=== PATIENT | female | born 1965 | race Two or more races ===

== ENCOUNTER 2018-03-18 09:47 | Inpatient (IN) | payer MEDICAID ==
[2018-03-10 10:33] LABS: APPEARANCE,URINE CLOUDY; BILIRUBIN, URINE NEGATIVE (NEGATIVE); COLOR,URINE PALE YELLOW; GLUCOSE, URINE (UA) NEGATIVE (NEGATIVE); KETONES,URINE NEGATIVE (NEGATIVE); LEUKOCYTE ESTERASE ,URINE 2+ (NEGATIVE); NITRITE,URINE NEGATIVE (NEGATIVE); PH,URINE 5 (4.5-8.0); PROTEIN,URINE NEGATIVE (NEGATIVE); UROBILINOGEN,URINE NORMAL MG/DL (0.0-1.0)
[2018-03-10 10:36] LABS: BASOPHILS % (AUTO) 1.2 % (0.0-2.0); EOSINOPHILS % (AUTO) 0.1 % (0.0-3.0); HEMATOCRIT 31.8 % (37.0-47.0); HEMOGLOBIN 10.5 G/DL (12.0-16.0); LYMPHOCYTES % (AUTO) 43.8 % (20.0-45.0); MEAN CORPUSCULAR VOLUME 98 FL (80-99); MONOCYTES % (AUTO) 8.8 % (1.0-10.0); NEUTROPHILS % (AUTO) 46.1 % (45.0-75.0); PLATELET COUNT 213 K/UL (150-450); RED BLOOD COUNT 3.25 M/UL (4.20-5.40); RED CELL DISTRIBUTION WIDTH 14.2 % (11.6-14.8); WHITE BLOOD COUNT 6.8 K/UL (4.8-10.8)
[2018-03-10 10:42] LABS: INR 0.9 (0.9-1.1)
[2018-03-10 11:09] LABS: ANION GAP 8 mmol/L (5-15); BLOOD UREA NITROGEN 23 mg/dL (7-18); CALCIUM 8.7 MG/DL (8.5-10.1); CARBON DIOXIDE 27 MMOL/L (21-32); CHLORIDE 107 MMOL/L (98-107); CREATININE 0.8 MG/DL (0.55-1.30); POTASSIUM 3.8 MMOL/L (3.5-5.1); SODIUM 142 MMOL/L (136-145)
--- NOTE | 2018-03-10 14:03 | Diagnostic Imaging Report ---
Indication: Cough Technique: 2 views of the chest Comparison: None Findings: There is left arm PICC, tip of which is at the level of the upper superior vena cava just beyond the innominate venous confluence. The lungs and pleural spaces are clear. Heart size is normal. The aorta is tortuous. There are degenerative changes of the thoracic spine. A surgical clip is seen within the right breast Impression: No acute process PICC
--- NOTE | 2018-03-12 17:05 | Cardiology Report ---
APPROVED REPORT EKG Measurement Heart [id number] Normal sinus rhythm T wave abnormality, consider anterior ischemia Abnormal ECG
--- NOTE | 2018-03-17 11:15 | Pre-op HX & Phy Repo 2 SIG ---
DATE OF ADMISSION: 03/18/2018 SCHEDULED FOR SURGERY: On March 18, 2018. HISTORY OF PRESENT ILLNESS: The patient is a 52-year-old female who presented earlier this year with a mass in the outer right breast. Core biopsy revealed invasive ductal carcinoma of the breast and core biopsy of two axillary lymph nodes were negative. The patient was HER2-positive and underwent neoadjuvant chemotherapy. She is now scheduled to undergo right breast partial mastectomy with preoperative needle localization and right axillary lymph node biopsy. PAST MEDICAL HISTORY: MEDICATIONS: In the past, the patient took medications for hypertension and has taken baby aspirin in the past. Current medications include atorvastatin, Herceptin, Zofran, metoprolol. ALLERGIES: None. OPERATIONS: Removal of a left breast mass 30 years ago. REVIEW OF SYSTEMS: The patient is from [facility] and speaks no [place], but her daughter is always present who translates. PHYSICAL EXAMINATION: VITAL SIGNS: Height 5 feet 2 inches, weight 188 pounds. HEENT: Within normal limits. LUNGS: Clear. HEART: Regular rhythm. BREASTS: The right breast mass in the outer breast at 9 o'clock, 5 cm from the nipple is no longer palpable. Followup ultrasound was obtained revealing the mass is markedly decreased in size, now measuring 1.3 x 1.3. There is no palpable axillary supraclavicular lymphadenopathy. ABDOMEN: Soft. PELVIC: Per primary care physician. RECTAL: Per primary care physician. EXTREMITIES: Without edema. NEUROLOGIC: Physiologic. IMPRESSION: Invasive ductal carcinoma of right breast, status post chemotherapy. PLAN: Right breast partial mastectomy with preoperative needle localization and right axillary lymph node biopsy. Full discussion has been had with the patient and daughter regarding the nature of the surgery, indications, alternatives, options, and risks including bleeding, infection, recurrence, need for additional surgery to clear margins pending final pathology, need for radiation therapy to the breast, potential need for additional chemotherapy postoperatively. All questions have been answered. They understand and agreed to proceed. Abe Del Real M.D. DR: Marcia JOB#: [id number] CC:
[~2018-03-18] VITALS: Ht 162.6 cm; Wt 85.7 kg
[2018-03-18] VITALS (10 sets, daily range): BP systolic 96–154; BP diastolic 68–99
[2018-03-18] MEDS ORDERED: POTASSIUM600 M1 PO (10:25)
[2018-03-18] MEDS ORDERED: MAGNESIUM500 MG PO (10:25)
--- NOTE | 2018-03-18 11:34 | Pre-Procedure Note/Attestation ---
Pre-Procedure Note/Attestation Complete Prior to Procedure Planned Procedure: right Procedure Narrative: right breast partial mastectomy with pre-operative needle localization and right axillary lymph node biopsy Indications for Procedure Pre-Operative Diagnosis: invasive ductal carcinoma right breast Attestation I attest that I discussed the nature of the procedure; its benefits; risks and complications; and alternatives (and the risks and benefits of such alternatives ), prior to the procedure, with the patient (or the patient's legal delivery representative). I attest that, if there was a reasonable possibility of needing a blood transfusion, the patient (or the patient's legal delivery representative) was given the [facility] standardized written summary, pursuant to the [place] Blood Safety Act ([place] Health and Safety Code # 1645, as amended). I attest that I re-evaluated the patient just prior to the surgery and that there has been no change in the patient's H&P, except as documented below:none Abe Del Real MD Mar 18, 2018 11:34
[2018-03-18] MEDS ORDERED: Zemuron 50mg/5ml Inj IV ONE (11:44)
[2018-03-18] MEDS ORDERED: Lidocaine 1% 10mg/ml/EPI 0.01mg/ml 50ml INJ ONE (11:49)
[2018-03-18] MEDS ORDERED: Bupivacaine 0.5% Inj 30 ml vial INJ ONE (11:50)
[2018-03-18] MEDS ORDERED: Sterile Water Irrig 1000ml IRRIG ONE (12:00)
[2018-03-18] MEDS ORDERED: LR 1000ml ONE (12:00)
[2018-03-18] MEDS ORDERED: NS Irrig 1000ml ONE (12:00)
--- NOTE | 2018-03-18 12:02 | Anethesia Preoperative Eval ---
Anesthesia Pre-op PMH/ROS General Date of Evaluation: Mar 18, 2018 Time of Evaluation: 11:45 Anesthesiologist: ASA Score: ASA 3 Mallampati Score Class I : Soft palate, uvula, fauces, pillars visible Class II: Soft palate, uvula, fauces visible Class III: Soft palate, base of uvula visible Class IV: Only hard plate visible Mallampati Classification: Class II Surgeon: julien Diagnosis: right breast cancer Surgical Procedure: right breast partial mastectomy w/ preop neecle loc anr right axillary lymp Anesthesia History: none Allergies: Coded Allergies: No Known Allergies (Unverified , 03/17/18) Medications: see eMAR Past Medical History Cardiovascular: Reports: HTN; Denies: CAD, [place], valve dz, arrhythmia, other Gastrointestinal/Genitourinary: Denies: GERD, CRI, ESRD, other Neurologic/Psychiatric: Denies: dementia, CVA, depression/anxiety, TIA, other HEENT: Denies: cataract (L), cataract (R), glaucoma, [place] (L), [place] (R), other Hematology/Immune: Denies: anemia, DVT, bleeding disorder, other Musculoskeletal/Integumentary: Denies: OA, RA, DJD, DDD, edema, other Other: obesity Anesthesia Pre-op Phys. Exam Physician Exam Last Vital Signs Date Time Temp Pulse Resp B/P (MAP) Pulse Ox O2 Delivery O2 Flow Rate FiO2 03/18/18 10:27 98.1 71 20 136/93 (107) 98 98.1 03/18/18 10:25 Room Air Constitutional: NAD Cardiovascular: RRR Respiratory: CTA Gastrointestinal: S/NT/ND Airway Exam Mallampati Score: Class II MO: full ROM: full Teeth: missing Dentures: no upper, no lower Anesthesia Pre-op A/P Risk Assessment & Plan Assessment: asa 3 Plan: ETGA Status Change Before Surgery: No Pre-Antibiotics Drug: ancef 2 grams Given Within 1 Hr of Incision: Yes Time Given: 12:25 Fransisca Drew M.D. Mar 18, 2018 12:02
[2018-03-18] MEDS ORDERED: Lidocaine 1% MPF 10mg/ml 5ml ONE (12:43)
[2018-03-18] MEDS ORDERED: Propofol 200mg/20ml IV ONE (12:43)
[2018-03-18] MEDS ORDERED: fentaNYL 100 mcg/2 mL IV ONE (12:44)
[2018-03-18] MEDS ORDERED: LR 1000ml 1,000 ML IVLG SCH (13:01)
[2018-03-18] MEDS ORDERED: Labetalol 5mg/ml 20ml vial IV PRN (13:15)
[2018-03-18] MEDS ORDERED: DiphenhydrAMINE 50mg/ml Inj IVP PRN (13:15)
[2018-03-18] MEDS ORDERED: fentaNYL 100 mcg/2 mL IV PRN (13:15)
[2018-03-18] MEDS ORDERED: Hydromorphone 0.5mg/0.5ml inj IVP PRN (13:15)
--- NOTE | 2018-03-18 13:23 | Immediate Post-Op Evaluation ---
Immediate Post-Op Evalulation Immediate Post-Op Evalulation Procedure: right partial mastectomyw/ preop needle loc and right lymph node biopsy Date of Evaluation: Mar 18, 2018 Time of Evaluation: 14:06 IV Fluids: 400ml Blood Products: 0 Estimated Blood Loss: 10ml Urinary Output: 0 Blood Pressure Systolic: 96 Blood Pressure Diastolic: 68 Pulse Rate: 70 Respiratory Rate: 17 O2 Sat by Pulse Oximetry: 100 Temperature (Fahrenheit): 97.2 Pain Score (1-10): 0 Nausea: No Vomiting: No Complications none Patient Status: awake, patent, none Hydration Status: adequate Drug: ancef 2 grams Given Within 1 Hr of Incision: Yes Time Given: 10:25 Fransisca Drew M.D. Mar 18, 2018 13:23
[2018-03-18] MEDS ORDERED: Dexamethasone 4mg/ml vial ONE (13:32)
[2018-03-18] MEDS ORDERED: Glycopyrrolate 0.2mg/ml 1ml Vial ONE (13:56)
[2018-03-18] MEDS ORDERED: Neostigmine 1mg/ml 10ml Inj ONE (13:56)
--- NOTE | 2018-03-18 14:12 | Brief Operative Note ---
Immediate Post Operative Note Operative Note Pre-op Diagnosis: invasive ductal carcinoma right breast Procedure: right breast partial mastectomy with pre-op needle localization and right axillary lymph node biopsy Post-op Diagnosis: same Post-op Diagnosis: same as pre-op Findings: consistent w/pre-op dx studies Surgeon: ujlien Anesthesiologist: Anesthesia: general Specimen: yes - right breast tumor, right axillary lymph nodes Complications: none Condition: stable Fluids: see anesthesia record Estimated Blood Loss: minimal Drains: EARNEST Implant(s) used?: No Abe Del Real MD Mar 18, 2018 14:11
[2018-03-18] MEDS ORDERED: Norco 5mg/325mg tab ORAL PRN (15:21)
[2018-03-18] MEDS ORDERED: HYDROmorphone 1mg/ml Carpuject SUBQ PRN (15:21)
[2018-03-18] MEDS ORDERED: D5 1/2NS w/KCl 20mEq 1,000 ML IV SCH (16:00)
--- NOTE | 2018-03-18 22:15 | Operative Note - Dictated ---
DATE OF OPERATION: 03/18/2018 SURGEON: Abe Del Real M.D. SENIOR MAINTENANCE MECHANIC: None. ANESTHESIOLOGIST: Fransisca Drew M.D. TYPE OF ANESTHESIA: General endotracheal. PREOPERATIVE DIAGNOSIS: Invasive ductal carcinoma, right breast. POSTOPERATIVE DIAGNOSIS: Invasive ductal carcinoma, right breast. OPERATION PERFORMED: Right breast partial mastectomy with preoperative needle localization and right axillary lymph node biopsy. INDICATIONS: The patient presented earlier this year with a mass in the outer right breast. Core biopsy revealed invasive ductal carcinoma with core biopsy of two axillary lymph nodes negative. The patient's tumor was HER2-positive and she underwent neoadjuvant chemotherapy with very good clinical response with the mass no longer being palpable. DESCRIPTION OF PROCEDURE: The patient was taken to the operating room and under general endotracheal anesthesia with sequential compression device stockings in place, she was prepped and draped in usual fashion. The needle localization wire was in the outer breast as the lesion was located at 9 o'clock, 5 cm from the nipple within the central breast tissue. A curvilinear incision was made and flaps dissected circumferentially. The area of the wire localization was excised with a wide excision including pectoralis fascia. Some additional tissue was taken posterior and superior for additional margin. The pathologist examined the tissue and found evidence of the lesion. There were no other suspicious areas within the breast. The field was irrigated and hemostasis had been achieved with cautery. The subcutaneous tissues were closed with interrupted 3-0 Vicryl and deep dermal tissues with interrupted 3-0 Vicryl and skin closed with 4-0 Monocryl subcuticular suture. Then, an axillary incision was made achieving hemostasis with cautery. The clavipectoral fascia was incised. It was readily apparent that there was either a large lymph node or several small lymph nodes closer together. These were resected achieving hemostasis with cautery. The pathologist confirmed the presence of lymph node tissue. Through a separate stab incision inferiorly, a 19-mm Rolando drain was placed into the axilla and sutured to the skin with a 2-0 nylon suture. The clavipectoral fascia was closed with interrupted 3-0 Vicryl as was subcutaneous tissues and the skin closed with continuous 4-0 Monocryl subcuticular suture. Tincture of benzoin and half-inch Steri-Strips were applied to both incisions followed by dry sterile dressings. The patient was placed in a postsurgical brassiere. The patient tolerated the procedure well and left the operating room in good condition. Abe Del Real M.D. DR: Marcia JOB#: [id number] CC:
[2018-03-19] VITALS: BP 121/80
[2018-03-19 04:00] VITALS: BP 116/75
[2018-03-19 04:16] VITALS: BP 116/75
[2018-03-19 08:00] VITALS: BP 123/81
--- NOTE | 2018-03-19 08:33 | General Progress Note ---
Progress Note Progress Note AVSS Had pain relieved by Barbeau. Feels better this AM Right breast and axilla incisions clean with steristrips intact EARNEST 15cc serosang Imp. doing well Plan; discharge after teaching patient and daughter care of EARNEST drain maintain surgical brassiere in place f/u office 03/22 - call prn Rx Barbeau #20 instructions/limitations discussed Abe Del Real MD Mar 19, 2018 08:33
[2018-03-19 13:44] VITALS: BP 123/81
--- NOTE | 2018-03-19 13:44 | 48 Hour Post Anesthesia Eval ---
Post Anesthesia Evaluation Procedure: right partial mastectomyw/ preop needle loc and right lymph node biopsy Date of Evaluation: Mar 19, 2018 Time of Evaluation: 08:00 Blood Pressure Systolic: 123 0: 81 Pulse Rate: 78 Respiratory Rate: 18 Temperature (Fahrenheit): 98.3 O2 Sat by Pulse Oximetry: 94 Airway: patent Nausea: No Vomiting: No Pain Intensity: 0 Hydration Status: adequate Mental Status/LOC: patient returned to baseline Post-Anesthesia Complications: none Follow-up care needed: N/A Fransisca Drew M.D. Mar 19, 2018 13:44
--- NOTE | 2018-03-22 13:59 | Discharge Summary ---
Discharge Summary Hospital Course Date of Admission Mar 18, 2018 at 14:52 Date of Discharge Mar 19, 2018 at 10:30 Admitting Diagnosis Invasive ductal carcinoma, right breast. Reason for Hospitalization: Elective surgery HPI Lex Sims is a 52 year old female who was admitted on Mar 18, 2018 at 14:52 for Invasive ductal carcinoma, right breast. patient was admitted for elective surgery. Procedures s/p7/ by dr Del Real Right breast partial mastectomy with preoperative needle localization and right axillary lymph node biopsy. Hospital Course s/p surgery course of recovery uneventful incision right breast and axilla clean, Steri-Strips intact EARNEST drain output closely monitored, 15 mL of serosanguineous drainage patient and her daughter were taught regarding EARNEST drain care dressing clean and intact surgical brasserie on pain management addressed, pain controlled with oral analgesia bowel regimen ambulated, tolerated diet, voided freely script for Natalee provided discharge instructions provided fup with surgeon as outpatient 03/22 fup with biopsy results FINAL DIAGNOSES 1. Invasive ductal carcinoma, right breast. 2. s/p Right breast partial mastectomy with preoperative needle localization and right axillary lymph node biopsy. Discharge Discharge Disposition Patient was discharged to Home () Discharge Instructions Discharge Instructions Special Instructions I have been assigned to complete a D/C Summary on this account. I was not involved in the patient management Maci Guardado NP Mar 22, 2018 13:59
== END 2018-03-19 10:30 | disposition home or self-care (01) | DRG 363 ==
LOC: SUR 09:47 → 3E 14:52
PROC: 07B50ZX Excision of Right Axillary Lymphatic, Open Approach, Diagnostic (ICD-10-PCS; 2018-03-18)
PROC: 0HBT0ZZ Excision of Right Breast, Open Approach (ICD-10-PCS; principal; 2018-03-18 12:00)
DX: C50.811 Malignant neoplasm of overlapping sites of right female breast (principal); I10 Essential (primary) hypertension
CPT/HCPCS: 36415; 71046; 80048; 81003; 85025; 85610; 85730; 93005; 94003; 94150; J2405; J2710